=== PATIENT | female | born 1960 | race Caucasian/White ===

== ENCOUNTER 2018-08-07 18:44 | Emergency (ER) | payer MEDICAID, OTHER ==
[~2018-08-07] VITALS: Ht 160 cm; Wt 95.5 kg
[2018-08-07] MEDS ORDERED: ASPIRIN 81 MG TABLET CHEW PO ONE (19:30)
[2018-08-07] MEDS ORDERED: MAALOX/HYOSCYAMINE/LIDOCAINE 45 ML BTL PO ONE (19:30)
[2018-08-07] MEDS ORDERED: SODIUM CHLORIDE FLUSH 10ML SYR IVF ONE (19:30)
[2018-08-07] MEDS ORDERED: PLEASE ENTER ALLERGIES MC SCH (19:30)
[2018-08-07 19:37] VITALS: BP 212/99
[2018-08-07] MEDS ORDERED: MAALOX/HYOSCYAMINE/LIDOCAINE 45 ML BTL ONE (19:42)
[2018-08-07] MEDS ORDERED: ASPIRIN 81 MG TABLET CHEW ONE (19:42)
== END 2018-08-07 20:45 | disposition other institution (70) ==
LOC: ED 20:09
DX: R07.89 Other chest pain (principal); I16.9 Hypertensive crisis, unspecified; R06.00 Dyspnea, unspecified; Z72.9 Problem related to lifestyle, unspecified; F17.210 Nicotine dependence, cigarettes, uncomplicated
CPT/HCPCS: 71046; 93005; 99284